=== PATIENT | female | born 1960 | race American Indian/Alaskan Native ===

== ENCOUNTER 2016-12-14 15:07 | Outpatient (CLI) | payer BC, OTHER | END 2016-12-14 15:08 | disposition home or self-care (01) | LOC: LABHHL 15:07 | PROVIDERS: ATTEND Specialist | DX: N63 Unspecified lump in breast (principal) | CPT/HCPCS: 88305; 88361 ==

== ENCOUNTER 2016-12-22 08:02 | Outpatient (CLI) | payer BC ==
--- NOTE | 2016-12-22 11:27 | Ultrasound Report ---
ULTRASOUND GUIDED NEEDLE CORE BIOPSY OF A LEFT AXILLARY LYMPH NODE WITH CLIP PLACEMENT : 12/22/16 08:02:00 CLINICAL: Newly diagnosed right left breast cancer with a suspicious left axillary lymph node. COMPARISON :08/07/16 mammogram. FINDINGS: The procedure was explained to the patient and informed consent was obtained. Ultrasound demonstrated several normal size lymph nodes with central fat. Mild focal cortical thickening of in a 1.4 x 0.7 cm lymph node. The skin in the axilla was prepped with Betadine and anesthetized with 1% lidocaine. Ultrasound guided needle core biopsy of the thickest portion of the largest lymph node was performed through a small dermatotomy using 2% lidocaine with epinephrine for deep anesthesia and a 18-gauge Achieve biopsy device. Three samples were obtained and placed in formalin. A clip was deployed within the lymph node. Hemostasis was achieved with minimal pressure and a sterile dressing was applied. The patient tolerated the procedure well and there were no apparent complications. She was discharged in good condition and was given instructions for wound care and followup. IMPRESSION: Uncomplicated ultrasound-guided needle core biopsy of a left lymph node and clip deployment within the lymph node.
--- NOTE | 2016-12-22 15:24 | Magnetic Resonance Report ---
BILATERAL BREAST MRI WITHOUT AND WITH CONTRAST: 12/22/16 08:02:00 CLINICAL: History of right breast cancer status post right partial mastectomy and newly diagnosed left breast cancer. Status post left ultrasound needle biopsy 12/13/16 with pathologic diagnosis of invasive ductal carcinoma, Kaur grade 3/3. COMPARISON:08/07/16 bilateral mammogram and 12/13/16 left mammogram.. TECHNIQUE: Axial 1.0-mm T1 without, axial high resolution 2.0-mm T2 and axial 1.0-mm dynamic Vibrant high-resolution postcontrast T1 fat saturation sequences on a 1.5 Ghazal magnet. The examination was performed with an 8 channel dedicated Sentinelle breast coil. Post processing with CAD and subtraction was performed on an [employer] workstation. 18.0 cc of Multihance was injected without incident and a right wrist vein for the contrast portion of the exam. Consent was obtained prior to the administration of the contrast. FINDINGS: Right: Minimal background parenchymal enhancement. No mass or suspicious enhancement. Status post partial mastectomy with benign nonenhancing scar at 9 o'clock just lateral to the center of the breast. No suspicious right axillary or right internal mammary lymph nodes. Left: Mild background parenchymal enhancement. The known cancer is an irregular enhancing mass in the upper outer quadrant 4.1 cm from the nipple. It measures 3.1 x 1.8 x 1.6 cm and demonstrates heterogeneous enhancement with 112% peak enhancement and 30% type III washout. No other mass or suspicious enhancement. Four left axillary lymph nodes have benign morphology with central fat. The largest measures approximately 1.2 cm. No suspicious lymph nodes. IMPRESSION: 1. A 3.1 cm known left breast cancer. 2. No additional suspicious lesion of either breast. 3. Benign postsurgical changes in the right breast. 4.. No suspicious lymph nodes. RIGHT BI-RADS 2 -- Benign LEFT BI-RADS 6 -- Known Cancer
== END 2016-12-22 08:03 | disposition home or self-care (01) ==
LOC: SPVWC 08:02
PROVIDERS: ATTEND Surgery
DX: C50.412 Malignant neoplasm of upper-outer quadrant of left female breast (principal); Z85.3 Personal history of malignant neoplasm of breast; Z90.11 Acquired absence of right breast and nipple
CPT/HCPCS: 0159T; 38505; 76942; 88305; A4648; A9577; C8908; 77059

== ENCOUNTER 2017-08-08 14:54 | Emergency (ER) | payer BC ==
[2017-08-08 15:25] LABS: Hematocrit 35.9 % (30.3-42.9); Hemoglobin 11.5 gm/dl (10.1-14.3); Mean Corpuscular HGB Conc 32 % (30-34); Mean Corpuscular Hemoglobin 30 pg (28-32); Mean Corpuscular Volume 92 fl (79-97); Platelet Count 439 K/mm3 (140-440); Red Blood Count 3.91 M/mm3 (3.65-5.03); Red Cell Distribution Width 16.8 % (13.2-15.2); White Blood Count 9.6 K/mm3 (4.5-11.0)
[2017-08-08 15:42] LABS: Anion Gap 22 mmol/L; BUN/Creatinine Ratio 20; Blood Urea Nitrogen 14 mg/dL (7-17); Calcium 9.5 mg/dL (8.4-10.2); Carbon Dioxide 25 mmol/L (22-30); Glucose 114 mg/dL (65-100); Sodium 143 mmol/L (137-145)
--- NOTE | 2017-08-08 17:28 | Emergency Department Report ---
ED General Adult HPI - General Chief complaint: Dizziness Stated complaint: DIZZY Time Seen by Provider: 08/08/17 17:11 Source: patient, EMS (ems notes not available at time of chart dictation), RN notes reviewed, old records reviewed Mode of arrival: Stretcher Limitations: No Limitations - History of Present Illness Initial comments: His is a 56-year-old female who is previously unknown to this provider. Her private automatic data processing planner is Dr. Buddy Ash, past medical history includes diabetes, hypertension, high cholesterol, breast cancer, status post chemotherapy and right-sided lumpectomy. Patient is brought to the hospital by EMS for dizziness. The dizziness started at approximately 11:00 in the morning. Patient describes it as a sensation of "head heaviness", "lightheadedness", it did not radiate anywhere, and had no exacerbating or relieving factors. The patient reports no chest pain, no shortness of breath, no loss of vision, no extremity weakness, no extremity numbness, no ataxia, no slurred speech. He did not have exacerbating or relieving factors and has been resolved for a while , and patient has no complaints at this time. Patient describes a sensation of heart beating and racing, although no chest pain. The patient further reports that she thinks that she had a negative stress test within the past year. -: Sudden Consistency: now resolved Improves with: none Worsens with: none Associated Symptoms: weakness. denies: confusion, chest pain, cough, diaphoresis, loss of appetite, malaise, nausea/vomiting, shortness of breath, syncope - Related Data Home Medications Medication Instructions Recorded Confirmed Last Taken Cholecalciferol Vit D3 [Vitamin D3] 5,000 unit PO QDAY 01/24/17 01/31/17 Hydrochlorothiazide [Hctz] 12.5 mg PO QDAY 01/24/17 01/31/17 01/30/17 Levothyroxine [Synthroid] 100 mcg PO QAM 01/24/17 01/31/17 01/31/17 Simvastatin [Zocor TAB] 10 mg PO QHS 01/24/17 01/31/17 01/30/17 amLODIPine [Norvasc] 5 mg PO DAILY 01/24/17 01/31/17 01/31/17 metFORMIN [Glucophage] 500 mg PO QDAY 0601/31/17 01/30/17 Allergies Allergy/AdvReac Type Severity Reaction Status Date / Time HONEYDEW MELONS AdvReac Swelling Uncoded 01/24/17 09:56 of throat ED Review of Systems ROS: Stated complaint: DIZZY Other details as noted in HPI ED Past Medical Hx - Past Medical History Previous Medical History?: Yes Hx Hypertension: Yes (FOR 14 YRS, DR. BOLA BOSS- PCP) Hx Congestive Heart Failure: No Hx Diabetes: Yes (FOR 14 YRS) Hx of Cancer: Yes (Breast) Hx Asthma: No Hx COPD: No Hx HIV: No - Surgical History Past Surgical History?: Yes Hx Breast Surgery: Yes (LEFT BREAST BX) - Social History Smoking Status: Never Smoker Substance Use Type: None, Alcohol - Medications Home Medications: Home Medications Medication Instructions Recorded Confirmed Last Taken Type Cholecalciferol Vit D3 [Vitamin D3] 5,000 unit PO QDAY 01/24/17 01/31/17 History Hydrochlorothiazide [Hctz] 12.5 mg PO QDAY 01/24/17 01/31/17 01/30/17 History Levothyroxine [Synthroid] 100 mcg PO QAM 01/24/17 01/31/17 01/31/17 History Simvastatin [Zocor TAB] 10 mg PO QHS 01/24/17 01/31/17 01/30/17 History amLODIPine [Norvasc] 5 mg PO DAILY 01/24/17 01/31/17 01/31/17 History metFORMIN [Glucophage] 500 mg PO QDAY 01/24/17 01/31/17 01/30/17 History ED Physical Exam - General Limitations: No Limitations General appearance: alert, in no apparent distress - Head Head exam: Present: atraumatic, normocephalic - Eye Eye exam: Present: normal appearance, PERRL, EOMI, other (visual acuity intact to finger counting, color perception, reading at a close distance). Absent: nystagmus - ENT ENT exam: Present: normal exam, normal orophraynx, mucous membranes moist, normal external ear exam - Neck Neck exam: Present: normal inspection, full ROM - Respiratory Respiratory exam: Present: normal lung sounds bilaterally. Absent: respiratory distress, chest wall tenderness - Cardiovascular Cardiovascular Exam: Present: regular rate, normal rhythm, normal heart sounds. Absent: bradycardia, tachycardia, irregular rhythm, systolic murmur, diastolic murmur, rubs, gallop - GI/Abdominal GI/Abdominal exam: Present: soft, normal bowel sounds. Absent: distended, tenderness, guarding, rebound, rigid, pulsatile mass - Extremities Exam Extremities exam: Present: normal inspection, full ROM, normal capillary refill. Absent: pedal edema, joint swelling, calf tenderness - Back Exam Back exam: Present: normal inspection, full ROM. Absent: tenderness, CVA tenderness (R), paraspinal tenderness, vertebral tenderness - Neurological Exam Neurological exam: Present: alert, oriented X3, CN II-XII intact, normal gait ( normal gait, normal tandem gait, negative Romberg exam, normal [id number], negative pass pointing), other (Extraocular movements intact. Tongue midline. No facial droop. Facial sensation intact to light touch in the V1, V2, V3 distribution bilaterally. 5 and 5 strength in 4 extremities.. Sensation is intact to light touch in 4 extremities.). Absent: motor sensory deficit - Psychiatric Psychiatric exam: Present: normal affect, normal mood - Skin Skin exam: Present: warm, dry, intact, normal color. Absent: rash ED Course Vital Signs 08/08/17 08/08/17 08/08/17 14:58 16:29 18:51 Temperature 98.4 F 98.7 F 98.7 F Pulse Rate 92 H 90 100 H Respiratory 22 16 17 Rate Blood Pressure 184/96 Blood Pressure 154/85 184/110 [Left] O2 Sat by Pulse 96 100 100 Oximetry 08/08/17 08/08/17 08/08/17 19:52 19:54 21:07 Temperature 98.1 F Pulse Rate 74 110 H 98 H Respiratory 16 22 Rate Blood Pressure Blood Pressure 176/90 161/95 [Left] O2 Sat by Pulse 97 99 Oximetry 08/08/17 22:10 Temperature Pulse Rate 86 Respiratory 16 Rate Blood Pressure Blood Pressure 139/76 [Left] O2 Sat by Pulse 96 Oximetry - Reevaluation(s) Reevaluation #1: 08/08/17 21:19 I think transient ischemic attack/cerebrovascular accident is very unlikely given that the patient does not endorse ataxia, unsteady gait, or loss of vision. ED Medical Decision Making - Lab Data Result diagrams: 08/08/17 15:15 12/20/17 15:15 Vital Signs 08/08/17 08/08/17 08/08/17 14:58 16:29 18:51 Temperature 98.4 F 98.7 F 98.7 F Pulse Rate 92 H 90 100 H Respiratory 22 16 17 Rate Blood Pressure 184/96 Blood Pressure 154/85 184/110 [Left] O2 Sat by Pulse 96 100 100 Oximetry 08/08/17 08/08/17 08/08/17 19:52 19:54 21:07 Temperature 98.1 F Pulse Rate 74 110 H 98 H Respiratory 16 22 Rate Blood Pressure Blood Pressure 176/90 161/95 [Left] O2 Sat by Pulse 97 99 Oximetry Lab Results 08/08/17 08/08/17 08/08/17 Range/Units 15:15 15:15 17:45 WBC 9.6 (4.5-11.0) K/mm3 RBC 3.91 (3.65-5.03) M/mm3 Hgb 11.5 (10.1-14.3) gm/dl Hct 35.9 (30.3-42.9) % MCV 92 (79-97) fl MCH 30 (28-32) pg MCHC 32 (30-34) % RDW 16.8 H (13.2-15.2) % Plt Count 439 (140-440) K/mm3 PT 13.1 (12.2-14.9) Sec. INR 0.95 (0.87-1.13) APTT 30.8 (24.2-36.6) Sec. D-Dimer 254.93 H (0-234) ng/mlDDU Sodium 143 (137-145) mmol/L Potassium 4.0 (3.6-5.0) mmol/L Chloride 100.0 (98-107) mmol/L Carbon Dioxide 25 (22-30) mmol/L Anion Gap 22 mmol/L BUN 14 (7-17) mg/dL Creatinine 0.7 (0.7-1.2) mg/dL Estimated GFR > 60 ml/min BUN/Creatinine Ratio 20 % Glucose 114 H (65-100) mg/dL Calcium 9.5 (8.4-10.2) mg/dL - EKG Data -: EKG Interpreted by Sd - EKG Data 08/08/17 21:15 Normal sinus, 82 bpm, normal axis, QTC prolonged, abnormal EKG, not morphologically consistent with severe elevation myocardial infarct - Radiology Data Radiology results: report reviewed, image reviewed Noncontrast CT scan of the brain, interpreted by radiology: No acute disease. CT scan of the chest with IV contrast: No pulmonary embolus - Medical Decision Making Differential diagnosis, including not limited to: Intracranial hemorrhage, pulmonary embolus, arrhythmia, structural cardiac disease, orthostasis Assessment and plan: 56-year-old female who describes dizziness, head heaviness , lightheadedness. Describes sensation of chest tracing. D-dimer elevated, CT scan of the chest negative for pulmonary embolus. Walks a steady gait, has a GCS of 15, with an NIH score of 0. Patient does endorse poor sleep hygiene, and endorses that she is not sleeping well over the past few days. Objectively speaking her neurologic exam is unremarkable, laboratory studies are unremarkable, her EKG is unremarkable, does not appear to be any objective indication of any emergent condition at this time. I contacted the automatic data processing planner covering for her primary automatic data processing planner, Dr. Virginia Lowe; he indicated that he would be happy to see the patient in the office as a follow- up within the next few days. Patient observed in the ER for approximately 6 hours without clinical decompensation, she'll be discharged at this time. Critical care attestation.: If time is entered above; I have spent that time in minutes in the direct care of this critically ill patient, excluding procedure time. ED Disposition Clinical Impression: Dizziness Disposition: DC-01 TO HOME OR SELFCARE Is pt being admited?: No Does the pt Need Aspirin: No Condition: Stable Additional Instructions: Do not take metformin medication for the next 48 hours. Otherwise, continue current outpatient medications. Follow-up with your private automatic data processing planner within the next 48 hours. Return to the ER right away with fevers, chills, chest pain, shortness of breath, weakness, numbness, unsteady gait, loss of vision, inability to speak, inability to breathe. I have contacted the covering automatic data processing planner for your primary automatic data processing planner, he would like you to follow -up within the next 2 days as a walk-in. Referrals: PRIMARY CARE, [Primary Care Provider] - 3-5 Days LOVE BLANK MD [Staff Physician] - 3-5 Days
[2017-08-08 18:18] LABS: INR 0.95 (0.87-1.13)
[2017-08-08 18:19] LABS: Partial Thromboplastin Time 30.8 Sec. (24.2-36.6)
--- NOTE | 2017-08-08 19:56 | Cat Scan Report ---
FINAL REPORT PROCEDURE: CT ANGIO CHEST TECHNIQUE: Computerized tomographic angiography of the chest was performed after the IV injection of iodinated nonionic contrast including image processing. The image data was postprocessed using 2-dimensional multiplanar reformatted (MPR) and 3-dimensional (MIP and/or volume rendered) techniques. HISTORY: dizzy near syncope COMPARISON: No prior studies are available for comparison. FINDINGS: Study is limited by streak artifact secondary to breast implants. Heart and pericardium: No pericardial effusion or thickening. Thoracic aorta: Normal. Pulmonary vasculature: Linear streak artifact is present. No filling defects are seen however to suggest presence of pulmonary emboli. Lymph nodes: No enlarged thoracic lymph nodes. Lungs: Normal. Pleural space: No effusion, thickening, or pneumothorax. Musculoskeletal structures: No significant abnormality. Upper abdominal structures: Bilateral the low-attenuation lesions are seen in the liver, which may be cysts. IMPRESSION: No evidence of pulmonary emboli
--- NOTE | 2017-08-08 21:03 | Cat Scan Report ---
FINAL REPORT PROCEDURE: CT HEAD/BRAIN WO CON TECHNIQUE: Computerized tomography of the head was performed without contrast material. HISTORY: Dizziness COMPARISON: No prior studies are available for comparison. FINDINGS: Subcentimeter lacunar infarct in the left basal ganglia. No CT evidence of intracranial hemorrhage, mass, hydrocephalus, or acute territorial infarction. The intracranial arteries are symmetric in density. Calvarium is intact. There is minimal bilateral ethmoid sinus mucosal thickening. Mastoids are aerated. IMPRESSION: No CT evidence of acute intracranial abnormality
[2017-08-08 22:11] VITALS: BP 139/76
== END 2017-08-08 22:14 | disposition home or self-care (01) ==
LOC: ED 14:54
DX: R42 Dizziness and giddiness (principal); I10 Essential (primary) hypertension; E11.9 Type 2 diabetes mellitus without complications
CPT/HCPCS: 36415; 70450; 71275; 80048; 85027; 85379; 85610; 85730; 93005; 93010; 99284; Q9967